=== PATIENT | male | born 1995 | race Caucasian/White ===

== ENCOUNTER 2019-10-30 19:56 | Emergency (ER) | payer BC, OTHER ==
[2019-11-01 12:28] LABS: SARS-CoV-2 MS2 Positive; SARS-CoV-2 N Gene Negative; SARS-CoV-2 S Gene Negative; SARS-CoV-2 orf1ab Negative
== END 2019-10-30 20:50 | disposition home or self-care (01) ==
LOC: MADERS 19:56
DX: J34.89 Other specified disorders of nose and nasal sinuses (principal); R05 Cough; Z20.828 Contact with and (suspected) exposure to other viral communicable diseases
CPT/HCPCS: 87635; 99283; U0003